=== PATIENT | female | born 1955 | race Caucasian/White ===

== ENCOUNTER 2016-03-29 16:52 | Inpatient (IN) | payer MEDICARE, SELFPAY ==
[2016-03-29] MEDS ORDERED: ASPIRIN 81 MG CHEW PO STA (17:03)
[2016-03-29] MEDS ORDERED: NITROGLYCERIN OINT 1 INCH/GM PACKET TOPICAL STA (17:03)
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
[2016-03-29 17:32] LABS: Basophils % (A) 0 %; CH 31.2; CHCM 35.2; Eosinophils % (A) 1 %; HCT 43.8 % (34.0-46.0); HDW 2.27; Luc % (Auto) 2; Lymphocytes # (A) 1.4 k/uL (1.0-4.8); Lymphocytes % (A) 22 %; MCH 30.5 pg (25.0-35.0); MCHC 34.4 g/dL (31.0-37.0); MCV 88.9 fL (80.0-100.0); Mean Platelet Volume 6.2; Monocytes # (A) 0.4 k/uL (0-1.0); Monocytes % (A) 6 %; Neutrophils # (A) 4.4 k/uL (1.3-7.7); Neutrophils % (A) 70 %; RBC 4.92 m/uL (3.80-5.40); RDW 12.7 % (11.5-15.5); WBC 6.4 k/uL (3.8-10.6)
[2016-03-29 17:43] LABS: ALT 46 U/L (9-52); AST 48 U/L (14-36); Alkaline Phosphatase 57 U/L (38-126); Anion Gap 12 mmol/L; Blood Urea Nitrogen 9 mg/dL (7-17); Calcium 9.8 mg/dL (8.4-10.2); Carbon Dioxide 29 mmol/L (22-30); Chloride 90 mmol/L (98-107); Glucose 102 mg/dL (74-99); Magnesium 1.8 mg/dL (1.6-2.3); Non-African American GFR(MDRD) >60 (>60 ml/min/1.73 sqM); Potassium 3.4 mmol/L (3.5-5.1); Sodium 131 mmol/L (137-145); Total Bilirubin 0.7 mg/dL (0.2-1.3); Total Protein 7.4 g/dL (6.3-8.2)
[2016-03-29 17:52] LABS: Partial Thromboplastin Time 25.8 sec (22.0-30.0); Prothrombin Time 10.4 sec (9.0-12.0)
[2016-03-29 18:05] LABS: Creatine Kinase MB 10.9 ng/mL (0.0-2.4); Troponin I 1.02 ng/mL (0.000-0.034)
[2016-03-29] MEDS ORDERED: HEPARIN SODIUM,PORCINE 5,000 UNIT/ML 1 ML VIAL IV ONE (18:11)
[2016-03-29] MEDS ORDERED: HEPARIN SODIUM,PORCINE/D5W PMX 25,000 UNIT in DEXTROSE/WATER 1 500ML.BAG IV SCH (18:15)
--- NOTE | 2016-03-29 18:18 | XR ---
EXAMINATION TYPE: XR chest 2V DATE OF EXAM: 03/29/2016 6:14 PM HISTORY: Chest pain. REFERENCE: NONE. FINDINGS: Lung volumes are mildly prominent. There are senescent changes throughout the lungs. Heart size is normal. There is no pneumonia or edema. Pleural spaces are clear. IMPRESSION: 1. NO ACUTE INTRATHORACIC ABNORMALITY. 2. QUESTIONABLE COPD.
[2016-03-29] MEDS ORDERED: Acetaminophen-Codeine 300-30mg TAB PO STA (18:34)
[2016-03-29] MEDS ORDERED: NITROGLYCERIN SL TABS 0.4 MG TAB SUBLINGUAL PRN (18:37)
[2016-03-29] MEDS: ONDANSETRON 4 MG/2 ML VIAL IVP PRN (20:17)
[2016-03-29] MEDS ORDERED: LORazepam 2 MG/ML SYRINGE IV STA (20:51)
[2016-03-29] MEDS ORDERED: LORazepam 2 MG/ML SYRINGE IV PRN (21:30)
[2016-03-29 22:13] VITALS: BMI 24.0
[2016-03-29] MEDS ORDERED: CARISOPRODOL 350 MG TAB PO PRN (22:31)
[2016-03-29] MEDS ORDERED: MECLIZINE 25 MG TAB PO PRN (22:31)
[2016-03-29] MEDS: NITROGLYCERIN OINT 1 INCH/GM PACKET TOPICAL SCH (23:15)
[2016-03-29] MEDS ORDERED: Acetaminophen-Codeine 300-30mg TAB PO PRN (23:43)
[2016-03-30] MEDS ORDERED: IPRATROPIUM-ALBUTEROL 3 ML NEB INHALATION SCH
[2016-03-30] MEDS ORDERED: HEPARIN SODIUM,PORCINE 5,000 UNIT/ML 1 ML VIAL IV PRN (01:08)
[2016-03-30 01:48] LABS: Creatine Kinase MB 28.2 ng/mL (0.0-2.4); Troponin I 5.45 ng/mL (0.000-0.034)
[2016-03-30] MEDS: Acetaminophen-Codeine 300-30mg TAB PO PRN ×2 (02:51→20:05)
[2016-03-30] MEDS: ONDANSETRON 4 MG/2 ML VIAL IVP PRN (02:58)
[2016-03-30] MEDS: NITROGLYCERIN OINT 1 INCH/GM PACKET TOPICAL SCH (05:28)
[2016-03-30 07:31] LABS: Cholesterol 175 mg/dL (<200); HDL Cholesterol 83 mg/dL (40-60); Triglycerides 60 mg/dL (<150)
[2016-03-30 07:44] LABS: Creatine Kinase MB 38.9 ng/mL (0.0-2.4); Troponin I 5.57 ng/mL (0.000-0.034)
[2016-03-30] MEDS: IPRATROPIUM-ALBUTEROL 3 ML NEB INHALATION SCH ×4 (07:56→19:55)
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
[2016-03-30] MEDS ORDERED: ATORVASTATIN 80 MG TAB PO STA (08:43)
[2016-03-30] MEDS ORDERED: NITROGLYCERIN SL TABS 0.4 MG TAB SUBLINGUAL PRN ×2 (08:43→11:23)
[2016-03-30] MEDS ORDERED: SODIUM CHLORIDE 0.9% 1,000 ML in EMPTY BAG 1 BAG IV ONE (08:43)
[2016-03-30] MEDS ORDERED: ALPRAZolam 0.5 MG TAB PO PRN (08:43)
[2016-03-30] MEDS ORDERED: ASPIRIN 325 MG TAB PO STA (08:43)
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
[2016-03-30] MEDS ORDERED: CHOLECALCIFEROL 1,000 UNIT TAB PO SCH (09:00)
[2016-03-30] MEDS ORDERED: ASPIRIN 325 MG TAB PO SCH (09:00)
[2016-03-30] MEDS ORDERED: diphenhydrAMINE 50 MG/ML 1 ML VIAL ONE (09:02)
[2016-03-30] MEDS ORDERED: MIDAZOLAM 2 MG/2 ML VIAL ONE (09:02)
[2016-03-30] MEDS ORDERED: methylPREDNISolone SOD SUCCI 125 MG/2 ML VIAL ONE (09:03)
[2016-03-30] MEDS ORDERED: diphenhydrAMINE 50 MG/ML 1 ML VIAL IVP ONE (09:16)
[2016-03-30] MEDS ORDERED: IV FLUID CONTINUATION 900 ML IV ONE (09:16)
[2016-03-30] MEDS ORDERED: methylPREDNISolone SOD SUCCI 125 MG/2 ML VIAL IV ONE (09:16)
[2016-03-30] MEDS: MIDAZOLAM 2 MG/2 ML VIAL IVP ONE ×2 (09:24→09:31)
[2016-03-30] MEDS ORDERED: LIDOCAINE 2% INJ 20 MG/ML SQ ONE (09:26)
--- NOTE | 2016-03-30 10:38 | ECHOF ---
Referral Reason:assess lvf MEASUREMENTS -------- HEIGHT: 160.0 cm WEIGHT: 65.3 kg BP: 123/76 RVIDd: 2.5 cm (< 3.3) IVSd: 1.2 cm (0.6 - 1.1) LVIDd: 4.1 cm (3.9 - 5.3) LVPWd: 1.0 cm (0.6 - 1.1) IVSs: 1.6 cm LVIDs: 3.4 cm LVPWs: 1.6 cm LA Diam: 3.0 cm (2.7 - 3.8) LAESV Index (A-L): 21.42 ml/m Ao Diam: 3.1 cm (2.0 - 3.7) AV Cusp: 2.4 cm (1.5 - 2.6) MV EXCURSION: 14.382 mm (> 18.000) MV EF SLOPE: 68 mm/s (70 - 150) MV E Darrell: 0.66 m/s MV DecT: 222 ms MV A Darrell: 0.76 m/s MV E/A Ratio: 0.87 RAP: 5.00 mmHg RVSP: 31.76 mmHg FINDINGS -------- Sinus rhythm. consider the possibility of apical ballooning syndrome This was a technically good study. The left ventricular size is normal. There is borderline concentric left ventricular hypertrophy. Overall left ventricular systolic function is severely impaired with, an EF between 25 - 30 %. Apical anterior LV wall motion is akinetic. Apical lateral LV wall motion is akinetic. Apical inferior LV wall motion is akinetic. Apical septum LV wall motion is akinetic. The right ventricle is normal in size and function. The left atrium is normal in size. Normal LA size by volume 22+/-6 ml/m2. The right atrium is normal in size. The aortic valve is trileaflet and appears structurally normal. There is trace mitral regurgitation. Mild tricuspid regurgitation present. Right ventricular systolic pressure is normal at < 35 mmHg. The pulmonic valve is normal. There is no pulmonic regurgitation present. The aortic root size is normal. CONCLUSIONS -------- 1. Sinus rhythm. 2. Apical septum LV wall motion is akinetic. 3. The right ventricle is normal in size and function. 4. Normal LA size by volume 22+/-6 ml/m2. 5. The right atrium is normal in size. 6. The aortic valve is trileaflet and appears structurally normal. 7. There is trace mitral regurgitation. 8. Mild tricuspid regurgitation present. 9. Right ventricular systolic pressure is normal at < 35 mmHg. 10. The pulmonic valve is normal. 11. The aortic root size is normal. 12. consider the possibility of apical ballooning syndrome 13. This was a technically good study. 14. The left ventricular size is normal. 15. There is borderline concentric left ventricular hypertrophy. 16. Overall left ventricular systolic function is severely impaired with, an EF between 25 - 30 %. 17. Apical anterior LV wall motion is akinetic. 18. Apical lateral LV wall motion is akinetic. 19. Apical inferior LV wall motion is akinetic. COMPUTER NUMERICAL CONTROL OPERATOR: Tomeka Shah RDCS
[2016-03-30] MEDS ORDERED: BIVALIRUDIN BOLUS 250 MG/50 ML IV ONE (10:47)
[2016-03-30] MEDS ORDERED: BIVALIRUDIN 250 MG in SODIUM CHLORIDE 0.9% 50 ML IV ONE (10:48)
[2016-03-30] MEDS ORDERED: CLOPIDOGREL 75 MG TAB ONE ×2 (10:54)
[2016-03-30] MEDS ORDERED: CLOPIDOGREL 75 MG TAB PO ONE (10:58)
[2016-03-30] MEDS: NITROGLYCERIN 1000MCG/10ML SYRINGE INTRACORON ONE ×2 (11:00→11:05)
[2016-03-30] MEDS: ATORVASTATIN 80 MG TAB PO SCH (11:05)
[2016-03-30] MEDS ORDERED: LIDOCAINE 2% INJ 20 MG/ML (20 ML MDV) ONE (11:12)
[2016-03-30] MEDS ORDERED: FUROSEMIDE 10 MG/ML 4 ML VIAL ONE (11:17)
[2016-03-30] MEDS ORDERED: IOHEXOL 350 MG/ML 100 ML BOTTLE INJ ONE (11:18)
[2016-03-30] MEDS ORDERED: FUROSEMIDE 10 MG/ML 4 ML VIAL IV ONE (11:18)
[2016-03-30] MEDS ORDERED: RX INFO: IV CONTRAST WAS GIVEN 1 EACH MISC MISCELLANE PRN (11:23)
[2016-03-30] MEDS ORDERED: MAG HYDROX/AL HYDROX/SIMETH 30 ML CUP PO PRN (11:23)
[2016-03-30] MEDS ORDERED: ATROPINE SULFATE 0.1 MG/ML 10ML SYRINGE IV PRN (11:23)
[2016-03-30] MEDS ORDERED: ZOLPIDEM 5 MG TAB PO PRN (11:23)
[2016-03-30] MEDS ORDERED: SODIUM CHLORIDE 0.9% 1,000 ML IV SCH (11:30)
--- NOTE | 2016-03-30 13:03 | CC ---
DATE OF SERVICE: INDICATION: Non-ST segment elevation MA. PROCEDURE NOTE: After obtaining informed consent, left heart catheterization and coronary angiogram are performed via the right femoral artery using standard Ninfa catheters. Patient tolerated the procedure well without any obvious immediate complications. FINDINGS: 1. HEMODYNAMICS: Left ventricular end-diastolic pressure was 24 mm. There is no significant gradient across the aortic valve. 2. LEFT VENTRICULOGRAM: Left ventriculogram is performed in LOVE position and shows akinetic apex that is moderate to severe LV dysfunction with an ejection fraction of 35%, mid to distal anterior wall and the apex are hypokinetic. Inferobasal wall is erika normal. LV systolic function is around 35%. 3. ANGIOGRAPHIC DATA: LEFT MAIN CORONARY ARTERY: Left main coronary artery is a normal size vessel and is free of stenosis. It divides into left anterior descending coronary artery and circumflex coronary artery. Circumflex coronary artery is a small, nondominant vessel and is free of significant stenosis. LAD gives off 2 large caliber diagonal branches and the LAD itself shows a 99% stenosis in its midportion. Right coronary artery seems to be a dominant vessel. It gives the appearance of a complete occlusion in the mid to distal portion with some right to left collaterals. CONCLUSION: 1. A 99% stenosis involving mid left anterior descending artery. 2. Ischemic cardiomyopathy with severe left ventricular dysfunction. 3. Possible chronic occlusion of the right coronary artery after the origin of the PDA.
[2016-03-30] MEDS: CARVEDILOL 3.125 MG TAB PO SCH (17:34)
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
--- NOTE | 2016-03-30 20:22 | PTCA ---
DATE OF SERVICE: PROCEDURE: PTCA and stenting of mid LAD. PERFORMED BY: Dr. Mason Lopez. CLINICAL INFORMATION: Mrs. Mae Faye is a 60-year-old lady with a history of hypertensive cardiovascular disease and vertigo type symptoms who came into the hospital with chest pain and had EKG changes suggestive of subendocardial FL and had troponin elevation. Patient's presentation with a non-ST elevation myocardial infarction. EKG changes and ongoing chest pain and ( ) cardiac catheterization that was performed by Dr. Aden. Study revealed that the LAD had a 99% stenosis with sluggish flow, which was the culprit lesion. The right coronary seemed to be dominant, but totally occluded in the midportion without much distal flow. There were no collaterals and circumflex was very small. LAD seemed to be a large vessel supplying a large territory with multiple branches. PROCEDURE NOTE: The existing 6 Pashto introducer in the right femoral artery was used to perform the procedure. I performed an LV gram using a pigtail catheter and this revealed a global hypokinesia. Especially the inferior wall was hypokinetic towards the apex and in the midportion and there was akinesia. Anteroapical wall, hypokinetic. Estimated ejection fraction was about 20% without mitral regurgitation. Using a standard left Ninfa-type guide catheter, I cannulated the left coronary artery. A whisper wire was used to cross the lesion. Predilatation was performed using a 12 mm long, 2.5 the caliber balloon, which was a Trek balloon. I then deployed a 15 mm long, 2.75 caliber Xience stent deployed at 14 atmospheres. Patient had chest pain and precordial ST elevation that was more prominent. Excellent angiographic result without complication was achieved. The sheath was taken out and Angio-Seal device used to secure hemostasis and he was sent to the room in stable condition. Results were discussed with the patient, but there were no family available. Excellent angiographic result without complication was achieved.
--- NOTE | 2016-03-30 20:24 | LTR ---
March 30, 2016 RE: Mae Faye Kate Dear Dr. Pulliam: Thank you for the opportunity to participate in the care of Mrs. Mae Faye. I am pleased to report to you that we have excellent angiographic result. Her mid LAD was stented using a drug-eluting stent. She presented with a non-ST elevation NC. There is extensive wall motion abnormality and I suspect the RCA is also totally occluded but this may be a chronic occlusion without collaterals. After about 6 weeks or so she should be evaluated by an echocardiogram and possibly a stress test as well to see if to the RCA distribution defines itself as a prior NC. Thank you for your referral. Please call for questions. With kindest regards, Sincerely, HENNA DOWELL MD
[2016-03-30] MEDS: LISINOPRIL 5 MG TAB PO SCH (22:01)
[2016-03-31 06:19] LABS: Basophils % (A) 0 %; CH 31.4; CHCM 35.3; Eosinophils % (A) 0 %; HCT 39.4 % (34.0-46.0); HDW 2.32; HGB 13.2 gm/dL (11.4-16.0); Luc # (Auto) 0.11; Luc % (Auto) 1; Lymphocytes # (A) 1.5 k/uL (1.0-4.8); Lymphocytes % (A) 16 %; MCHC 33.6 g/dL (31.0-37.0); MCV 89.4 fL (80.0-100.0); Monocytes # (A) 0.7 k/uL (0-1.0); Monocytes % (A) 7 %; Neutrophils # (A) 6.8 k/uL (1.3-7.7); Neutrophils % (A) 75 %; RBC 4.41 m/uL (3.80-5.40); RDW 12.8 % (11.5-15.5); WBC 9.1 k/uL (3.8-10.6); WBC (Perox) 9.78
[2016-03-31 06:30] LABS: Anion Gap 8 mmol/L; Blood Urea Nitrogen 9 mg/dL (7-17); Calcium 9.1 mg/dL (8.4-10.2); Carbon Dioxide 28 mmol/L (22-30); Chloride 92 mmol/L (98-107); Glucose 98 mg/dL (74-99); Non-African American GFR(MDRD) >60 (>60 ml/min/1.73 sqM); Potassium 3.4 mmol/L (3.5-5.1); Sodium 128 mmol/L (137-145)
[2016-03-31] MEDS: CARVEDILOL 3.125 MG TAB PO SCH (07:01)
[2016-03-31] MEDS: IPRATROPIUM-ALBUTEROL 3 ML NEB INHALATION SCH ×4 (07:10→20:17)
[2016-03-31] MEDS: SPIRONOLACTONE 25 MG TAB PO SCH ×2 (08:29→12:06)
[2016-03-31] MEDS: ATORVASTATIN 80 MG TAB PO SCH (08:30)
[2016-03-31] MEDS: FUROSEMIDE 20 MG TAB PO SCH ×2 (08:31→12:06)
[2016-03-31] MEDS: ASPIRIN 81 MG CHEW PO SCH (08:31)
[2016-03-31] MEDS: CLOPIDOGREL 75 MG TAB PO SCH (08:31)
--- NOTE | 2016-03-31 12:29 | P.PN ---
Subjective Principal diagnosis: Non-ST elevated MD Selective a pleasant 60-year-old female with no prior documented history of hypertension or diabetes. She does have a history of mild hyperlipidemia and a family history of coronary artery disease in her father. She is a nonsmoker. She presented to the hospital symptoms of chest pain. Her troponin was located at 5.45. 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 Echocardiogram showed an ejection fraction of 25-30 %. She has been on Lasix 20 mg daily, lisinopril 5 mg at at bedtime, carvedilol 3.125 mg by mouth twice a day. She was hypotensive this morning with a blood pressure in the 80s and was symptomatic with this. Otherwise she' s been feeling well she's been up ambulating and has no complaints of shortness of breath or chest discomfort. Objective - Vital Signs Vital signs: Vital Signs Temp 98.1 F 03/31/16 08:00 Pulse 87 03/31/16 10:12 Resp 18 03/31/16 10:12 BP 129/71 03/31/16 10:12 Pulse Ox 100 03/31/16 08:00 Intake & Output 03/30/16 03/31/16 03/31/16 18:59 06:59 18:59 Intake Total 740 1600 200 Output Total 1760 Balance -1020 1600 200 Weight 64.8 kg Intake: IV 280 1000 Sodium Chloride 0.9% 1, 1000 000 ml In Empty Bag 1 bag @ 1 ML/KG/HR 65.6 mls/hr IV .[id number] [facility] Rx#: [id number] Intake, IV Titration 600 Amount Sodium Chloride 0.9% 1, 600 000 ml @ 75 mls/hr IV . [id number] [facility] Rx#:[id number] Oral 460 200 Output: Urine 1760 Other: Voiding Method Toilet # Voids 2 - Exam PHYSICAL EXAMINATION: HEENT: Head is atraumatic, normocephalic. Pupils equal, round. Neck is supple. There is no elevated jugular venous pressure. HEART EXAMINATION: Heart sounds regular, S1 and S2 normal. No murmur or gallop heard. CHEST EXAMINATION: Lungs are clear to auscultation and precussion. No chest wall tenderness is noted on palpation or with deep breathing. ABDOMEN: Soft, nontender. Bowel sounds are heard. No organomegaly noted. EXTREMITIES: 2+ peripheral pulses with no evidence of peripheral edema and no calf tenderness noted. Right groin puncture site with mild ecchymosis, no hematoma, no bruit. NEUROLOGIC patient is awake, alert and oriented x3. . - Labs CBC & Chem 7: 03/31/16 05:45 03/31/16 05:45 Labs: Abnormal Lab Results - Last 24 Hours (Table) 03/31/16 Range/Units 05:45 Sodium 128 L (137-145) mmol/L Potassium 3.4 L (3.5-5.1) mmol/L Chloride 92 L (98-107) mmol/L Assessment and Plan Plan: Assessment and plan #1 non-ST elevated myocardial infarction #2 family history of premature coronary artery disease #3 mild hyperlipidemia #4 PTSD From cardiology's perspective, we will stop Lasix. We will stop carvedilol and start the patient on metoprolol succinate 25 mg by mouth daily starting tomorrow. We will resume patient's home dose of Maxzide for her Mnire's. We' ll continue to follow the patient and provide further recommendations accordingly. We anticipate the patient will be discharged either Sunday or Sunday. BUFFING WHEEL FORMER MACHINE note has been reviewed, I agree with a documented findings and plan of care. Patient was seen and examined.
[2016-03-31] MEDS: TRIAMTERENE-HCTZ 75-50MG 1 EACH TAB PO SCH (13:29)
[2016-03-31] MEDS: MECLIZINE 25 MG TAB PO PRN (14:53)
--- NOTE | 2016-03-31 16:54 | P.PN ---
Subjective 60 yr old is admitted to the hospital with complaints of chest pain for the last few days. Pt was in good health till a week ago, when she noticed her exercise capacity has significantly decreased. Pt usually exercises at least 20mins, however was only able to tolerate a few minutes in the recent times. She states that her pain is midsternal, non radiating, intermittent in nature. At the time of my examination, pt was pain free. Pt was noted to have a EKG that didnot reveal any st-t wave changes, however there is a troponin elevation. Echocardiogram done initially showed lv dysfunction. Pt was taken to the labor economist, was noted to have diffuse coronary disease, and had a LAD stent placed by Interventional cardiology. No fevers, chills, chest pain, NINA, abdominal pain, urinary urgency or frequency. 03/31/2016 Patient states to be doing well denies having any chest pain, difficulty breathing, nausea, vomiting, diarrhea. Objective - Vital Signs Vital signs: Vital Signs Temp 98.1 F 03/31/16 08:00 Pulse 96 03/31/16 16:00 Resp 18 03/31/16 16:00 BP 97/64 03/31/16 16:00 Pulse Ox 100 03/31/16 16:00 Intake & Output 03/30/16 03/31/16 03/31/16 18:59 06:59 18:59 Intake Total 740 1600 318 Output Total 1760 Balance -1020 1600 318 Weight 64.8 kg 66 kg Intake: IV 280 1000 Sodium Chloride 0.9% 1, 1000 000 ml In Empty Bag 1 bag @ 1 ML/KG/HR 65.6 mls/hr IV .[id number] ONE Rx#: [id number] Intake, IV Titration 600 Amount Sodium Chloride 0.9% 1, 600 000 ml @ 75 mls/hr IV . [id number] [facility] Rx#:[id number] Oral 460 318 Output: Urine 1760 Other: Voiding Method Toilet # Voids 2 2 - Exam Physical exam Gen. appearance oriented 3 in no distress Neck is supple no JVD Lungs good air entry clear to auscultation no rhonchi or wheezing Heart S1-S2 heard regular rate and rhythm no murmurs appreciated Abdomen is soft nontender no organomegaly bowel sounds are intact Neurologically cranial nerves II-12 grossly intact no focal motor or sensory deficits noted Skin no abnormalities appreciated - Labs CBC & Chem 7: 03/31/16 05:45 03/31/16 05:45 Labs: Abnormal Lab Results - Last 24 Hours (Table) 03/31/16 Range/Units 05:45 Sodium 128 L (137-145) mmol/L Potassium 3.4 L (3.5-5.1) mmol/L Chloride 92 L (98-107) mmol/L Assessment and Plan Plan: 1. Non q wave UT 2. Peripheral vertig0 3. Chronic back pain. 4. Compensated systolic heart failure sec to ischemic disease. #5 hyponatremia likely secondary to diuretics and increased free water intake. Plan Dual antiplatelet therapy.Statin. ACEI, spirinolactone. Vascular checks Will be started on a fluid resection 1.5 L. This was discussed with the patient on the RN. Continue ongoing care patient would like to be monitored for apparently another 2 days by cardiology.
[2016-03-31] MEDS: LISINOPRIL 5 MG TAB PO SCH (23:12)
[2016-03-31] MEDS: ALPRAZolam 0.25 MG TAB PO PRN (23:24)
[2016-04-01] MEDS: TRIAMTERENE-HCTZ 75-50MG 1 EACH TAB PO SCH (08:21)
[2016-04-01] MEDS: ASPIRIN 81 MG CHEW PO SCH (08:21)
[2016-04-01] MEDS: ATORVASTATIN 80 MG TAB PO SCH (08:23)
[2016-04-01] MEDS: CLOPIDOGREL 75 MG TAB PO SCH (08:24)
[2016-04-01] MEDS: SPIRONOLACTONE 25 MG TAB PO SCH (08:25)
[2016-04-01] MEDS: IPRATROPIUM-ALBUTEROL 3 ML NEB INHALATION SCH ×4 (08:38→20:26)
[2016-04-01] MEDS ORDERED: METOPROLOL SUCCINATE (ER) 25 MG TAB.ER.24H PO SCH (09:00)
[2016-04-01] MEDS: MECLIZINE 25 MG TAB PO PRN (10:11)
[2016-04-01 10:37] VITALS: RESP 18
--- NOTE | 2016-04-01 16:49 | PN ---
Mae Faye is doing well. She is ambulating in the hallways. She ( ) because her blood pressure was low but she was asymptomatic. She was admitted with anterior wall infarct and underwent stenting to the LAD . She is doing well from a cardiac standpoint, she has no dizziness, lightheadedness. No undue shortness of breath. No chest discomfort. Vitals are stable. She is afebrile. Pulse rate is in the 70s and 80s, respirations are normal, blood pressure 160/69 to 103/63 mm of mercury. IMPRESSION: 1. Anterior wall myocardial infarction. 2. Severe left ventricular dysfunction, ischemic cardiomyopathy SUGGEST: Continue aspirin and atorvastatin and Plavix, Lisinopril dose was reduced to 2.5 mg p.o. daily in the evening. Continue metoprolol succinate 25 mg a day and spironolactone 12.5 mg p.o. daily. I will try increasing the dose of metoprolol succinate to 50 mg in the morning for tomorrow.
--- NOTE | 2016-04-01 19:47 | PN ---
INTERVAL HISTORY: Ms. Faye is a 60-year-old female with no significant past medical history who admitted to the hospital with a chief complaint of chest pain and she was found to have elevated troponins and also taken to the labor representative and had subsequent stenting of the LAD. Echo showed EF of 25 to 30% and she has been started on beta blockers, GISELA and Lasix. She showed significant improvement in her symptoms. Today the patient is lying in bed, appears to be in no acute distress. She does not have any active complaints. REVIEW OF SYSTEMS: CARDIAC: No chest pain or palpitations. RESPIRATORY: No cough. No difficulty in breathing. GI: No abdominal pain, nausea, vomiting, or diarrhea. : No dysuria or hematuria. Patient's medications have been reviewed. On examination, patient's vital signs, temperature is 97.6, heart rate 88, respiratory rate 18, blood pressure 95/52, saturating at 99% on room air. GENERAL EXAMINATION: HEAD: Atraumatic, normocephalic. EYES: Pupils, round, and reactive to light. NECK: No thyromegaly, no JVD. CARDIAC: S1, S2 heard. RESPIRATORY: Bilateral breath sounds are positive. No wheeze or crackles. ABDOMEN: Soft, nontender. Bowel sounds are positive. EXTREMITIES: No edema. No cyanosis. No clubbing. COUPLES THERAPIST: Alert, awake, oriented x3. No focal neurological deficits. Patient's labs: White count 9.1, hemoglobin is 13.2, platelets of 291. Sodium 128, potassium 3.4, chloride 92, bicarb 28, BUN 9, creatinine 0.60. ASSESSMENT: 1. Non-ST elevation myocardial infarction. 2. Mixed hyperlipidemia. 3. Peripheral vertigo. 4. Ischemic Cardiomyopathy with ejection fraction of 25 to 30%. 5. Hyponatremia most likely secondary to diuretics. 6. Family history of premature coronary artery disease. 7. Posttraumatic stress disorder. PLAN: Continue the patient on dual antiplatelet therapy, statin, gisela inhibitors and spironolactone. We will continue with the rest of his medication regimen and further recommendations to follow depending on the progress of the patient. [facility]
[2016-04-01] MEDS: ALPRAZolam 0.25 MG TAB PO PRN (21:40)
[2016-04-01] MEDS: LISINOPRIL 2.5 MG TAB PO SCH (21:41)
[2016-04-02 07:14] LABS: Basophils # (A) 0.1 k/uL (0-0.2); Basophils % (A) 1 %; CH 31.3; CHCM 34.9; Eosinophils # (A) 0.1 k/uL (0-0.7); Eosinophils % (A) 2 %; HCT 38.3 % (34.0-46.0); HDW 2.28; HGB 13.1 gm/dL (11.4-16.0); Luc # (Auto) 0.11; Luc % (Auto) 2; Lymphocytes # (A) 2.2 k/uL (1.0-4.8); Lymphocytes % (A) 30 %; MCH 30.8 pg (25.0-35.0); MCHC 34.3 g/dL (31.0-37.0); MCV 89.8 fL (80.0-100.0); Mean Platelet Volume 7.1; Monocytes # (A) 0.8 k/uL (0-1.0); Monocytes % (A) 10 %; Neutrophils # (A) 4.2 k/uL (1.3-7.7); Neutrophils % (A) 56 %; RBC 4.27 m/uL (3.80-5.40); WBC 7.4 k/uL (3.8-10.6)
[2016-04-02 07:27] LABS: Anion Gap 6 mmol/L; Blood Urea Nitrogen 11 mg/dL (7-17); Calcium 9.1 mg/dL (8.4-10.2); Carbon Dioxide 30 mmol/L (22-30); Chloride 97 mmol/L (98-107); Glucose 79 mg/dL (74-99); Non-African American GFR(MDRD) >60 (>60 ml/min/1.73 sqM); Potassium 3.9 mmol/L (3.5-5.1); Sodium 133 mmol/L (137-145)
[2016-04-02] MEDS: MECLIZINE 25 MG TAB PO PRN (07:59)
[2016-04-02] MEDS: TRIAMTERENE-HCTZ 75-50MG 1 EACH TAB PO SCH (07:59)
[2016-04-02] MEDS: SPIRONOLACTONE 25 MG TAB PO SCH (08:00)
[2016-04-02] MEDS: ATORVASTATIN 80 MG TAB PO SCH (08:00)
[2016-04-02] MEDS: CLOPIDOGREL 75 MG TAB PO SCH (08:00)
[2016-04-02] MEDS: METOPROLOL SUCCINATE (ER) 50 MG TAB.ER.24H PO SCH (08:00)
[2016-04-02] MEDS: ASPIRIN 81 MG CHEW PO SCH (08:00)
[2016-04-02] MEDS: IPRATROPIUM-ALBUTEROL 3 ML NEB INHALATION SCH ×4 (09:09→19:55)
--- NOTE | 2016-04-02 14:04 | PN ---
Mae Faye is a 60-year-old female who had an anterior wall myocardial infarction. She underwent successful stenting of this. She has severe left ventricular dysfunction. Apical ballooning was noted on 2-D echocardiogram. Ejection fraction revealed 25 to 30%. The anterior wall is akinetic. On examination, her vitals are stable. She is afebrile. Her blood pressure is 117/62 mmHg. Normal respirations. Normal pulse rate. Head and neck examination is normal. No JVD, thyromegaly, carotid bruits. Heart sounds are normal. No murmurs or gallops. Breath sounds are normal. No rhonchi. No crackles. ABDOMEN: Soft. EXTREMITIES: Warm. No edema. IMPRESSION: 1. Anterior wall myocardial infarction, status post coronary intervention. 2. Severe ischemic cardiomyopathy with akinesis of the anterior wall and apex with severe left ventricular dysfunction. No evidence for cardiogenic shock. No evidence for any significant heart failure. No S3 gallop. SUGGEST: Continue aspirin and Plavix along with atorvastatin, continue Lisinopril 2.5 mg p.o. daily, continue metoprolol succinate 50 mg daily. Continue spironolactone 12.5 mg daily. I would definitely ( ) holding triamterene hydrochlorothiazide and just increasing the dose of spironolactone as an outpatient. I will see her again in the next 1 to 2 weeks post discharge and follow her LV function and in the next 3 months she needs a reassessment for risk of sudden cardiac . I will also recommend cardiac rehab as an outpatient after 2 to 3 weeks.
[2016-04-02] MEDS: LISINOPRIL 2.5 MG TAB PO SCH (22:16)
[2016-04-02] MEDS: ALPRAZolam 0.25 MG TAB PO PRN (22:20)
[2016-04-03] MEDS: ASPIRIN 81 MG CHEW PO SCH (08:05)
[2016-04-03] MEDS: METOPROLOL SUCCINATE (ER) 50 MG TAB.ER.24H PO SCH (08:05)
[2016-04-03] MEDS: CLOPIDOGREL 75 MG TAB PO SCH (08:05)
[2016-04-03] MEDS: ATORVASTATIN 80 MG TAB PO SCH (08:05)
[2016-04-03] MEDS: SPIRONOLACTONE 25 MG TAB PO SCH (08:06)
[2016-04-03] MEDS: IPRATROPIUM-ALBUTEROL 3 ML NEB INHALATION SCH ×3 (08:16→15:41)
[2016-04-03] MEDS: TRIAMTERENE-HCTZ 75-50MG 1 EACH TAB PO SCH (11:26)
--- NOTE | 2016-04-03 12:34 | PN ---
Ms. Faye is a 60-year-old female with no significant past medical history admitted to the hospital with a chief complaint of chest pain. The patient was found to have elevated troponins and taken to the manager cardiac cath and subsequently had stenting of the LAD. Echo showed EF of 25 to 30%. She has been started beta blockers, segundo inhibitors and Lasix. The patient showed significant improvement in her symptoms. Today the patient is lying in bed, appears to be no acute distress. She does not have any active complaints. REVIEW OF SYSTEMS: CONSTITUTIONAL: Denies having any fevers, chills or rigors. RESPIRATORY: No cough. No difficulty in breathing. GI: No abdominal pain. No nausea or vomiting. No diarrhea. GENITOURINARY: No dysuria or hematuria. Patient's medications have been reviewed. On examination, patient's vital signs: Temperature is 97.6, heart rate of 93, respiratory rate 17, blood pressure 132/59, saturating at 97% on room air. GENERAL: Patient appears to be no acute distress. HEAD: Atraumatic, normocephalic. EYES: Pupils, round, and reactive to light. NECK: No jugular venous distention. No thyromegaly. CARDIOVASCULAR: S1, S2 heard. RESPIRATORY: Bilateral breath sounds are heard. Decreased in all lung piña. ABDOMEN: Soft. Bowel sounds positive. EXTREMITIES: No edema. No cyanosis seen. PHYSICAL THERAPIST ASSISTANT: Alert, awake, oriented x3. No focal neurological deficits. Patient's labs: White count of 7.4, hemoglobin 13.1, platelets of 289, sodium 133, potassium 3.9, chloride 97, bicarb 30, BUN 11, creatinine 0.69 ASSESSMENT AND PLAN: 1. Non-ST elevation myocardial infarction. 2. Peripheral vertigo. 3. Severe ischemic cardiomyopathy with ejection fraction of 25 to 30%. 4. Hyponatremia, resolved. 5. Family history of premature coronary artery disease. 6. Posttraumatic stress disorder. PLAN: The plan is to continue on dual antiplatelet therapy, statin and segundo inhibitors and spironolactone. Continue the rest of her medication regimen and anticipate discharge in the next 24 hours.
--- NOTE | 2016-04-03 15:39 | P.PN ---
Subjective Principal diagnosis: Chest pain This is a pleasant 60-year-old female admitted to the hospital with symptoms of chest discomfort. She was taken to the cardiac catheterization lab where she underwent angioplasty with stenting of the left anterior descending artery. Echocardiogram with Doppler study revealed an LV function of 25-30%. Patient has been walking in the [place] most of the morning, denies any chest pain , breathing is stable. Objective - Vital Signs Vital signs: Vital Signs Temp 97.2 F L 04/03/16 04:00 Pulse 80 04/03/16 11:50 Resp 18 04/03/16 11:50 BP 111/56 04/03/16 11:50 Pulse Ox 100 04/03/16 11:50 Intake & Output 04/02/16 04/03/16 04/03/16 18:59 06:59 18:59 Intake Total 440 600 305 Balance 440 600 305 Weight 63.2 kg Intake: Oral 440 600 305 Other: Voiding Method Toilet # Voids 1 1 - Exam PHYSICAL EXAMINATION: HEENT: Head is atraumatic, normocephalic. Pupils equal, round. Neck is supple. There is no elevated jugular venous pressure. HEART EXAMINATION: Heart S1, S2 normal. No murmur or gallop heard. CHEST EXAMINATION: Lungs are clear to auscultation and precussion. No chest wall tenderness is noted on palpation or with deep breathing. ABDOMEN: Soft, nontender. Bowel sounds are heard. No organomegaly noted. EXTREMITIES: 2+ peripheral pulses with no evidence of peripheral edema and no calf tenderness noted. NEUROLOGIC patient is awake, alert and oriented -3. . - Labs CBC & Chem 7: 04/02/16 06:35 04/02/16 06:35 Assessment and Plan Plan: Assessment and plan #1 non-Q-wave myocardial infarction, LAD stenting #2 family history of premature coronary artery disease in her father who had bypass surgery 2. #3 PTSD #4 mild hyperlipidemia # 5 ischemic cardiomyopathy Plan From cardiology's perspective, patient may be able to be discharged home today. We'll make her a follow-up appointment with Dr. Cisneros in the office post discharge. She will be discharged home on aspirin 81 mg daily, Lipitor 80 mg daily, Plavix 75 mg daily, lisinopril 2.5 mg daily, metoprolol tartrate 50 mg daily, Aldactone 25 mg daily, and sublingual nitroglycerin as needed for chest pain. The patient has been educated regarding her medication and provided prescriptions for the above medications as well. DNP note has been reviewed, I agree with a documented findings and plan of care. Patient was seen and examined.
[2016-04-03 15:41] VITALS: BP 118/56; PULSE 84; TEMP 97.1
--- NOTE | 2016-04-04 09:31 | DS ---
DATE OF ADMISSION: 03/29/2016 DATE OF DISCHARGE: 04/03/2016 HOSPITAL COURSE: Ms. Faye is a 60-year-old female with no significant past medical history admitted to the hospital with a chief complaint of chest pain. The patient was found to have elevated troponins and subsequently taken to the laborer airport maintenance. Patient had stenting of the LAD. Echo was showing an ejection fraction of 25% to 30%. Patient has been started on beta [place], GISELA inhibitor and Lasix. Patient showed significant improvement in her symptoms. Patient has been walking in the hallways every one hour and denies having any chest pain or dizziness. She has been cleared by Cardiology to be discharged home today. Patient's vitals at the time of discharge: Temperature 97.1, heart rate 84, respiratory rate 18, blood pressure 189/56, saturating at 100% on room air. GENERAL EXAMINATION: No acute distress. HEAD: Atraumatic, normocephalic. CARDIAC: S1, S2 heard. RESPIRATORY: Bilateral breath sounds are positive. ABDOMEN: Soft. EXTREMITIES: No edema. No swelling. No cyanosis. PATIENT'S LABS: White count of 7.4, hemoglobin 13.1, platelets of 289. Sodium 133, potassium 3.9, chloride 97, bicarb 30, BUN 11, creatinine 0.69. DISCHARGE DIAGNOSES: 1. Non-Q wave myocardial infarction, status post LAD stenting. 2. Peripheral vertigo. 3. Severe ischemic cardiomyopathy with ejection fraction of 25% to 30%. 4. Hyponatremia, resolved. 5. Family history of premature coronary artery disease. 6. Posttraumatic stress disorder. PATIENT'S DISCHARGE MEDICATIONS: 1. Tylenol No. 3 one tablet q.8 hours p.r.n. for pain. 2. Soma 350 mg p.o. b.i.d. 3. Vitamin D3, 3000 units p.o. daily. 4. Advair 250/50 Diskus 2 puffs b.i.d. 5. Meclizine 25 mg p.o. 3 times a day. 6. Floral 3 fatty acids 1000 mg p.o. daily. 7. Maxzide 75/50 one tablet p.o. daily. 8. Aspirin 81 mg p.o. daily. 9. Lipitor 80 mg p.o. daily. 10. Plavix 75 mg p.o. daily. 11. Lisinopril 2.5 mg p.o. q.h.s. 12. Metoprolol 50 mg p.o. daily. 13. Nitroglycerin 0.4 mg sublingual q.5 minutes p.r.n. for chest pain. 14. Aldactone 12.5 mg p.o. daily. FOLLOWUP: The patient is advised to follow up with her primary care physician, Dr. Pulliam, in 1 to 2 days and Cardiology, Dr. Hooker, within one weeks' of time. Activity as tolerated. DIET: Cardiac diet.
== END 2016-04-03 16:59 | disposition home or self-care (01) | DRG 247 ==
LOC: EC 16:52 → 6SEL 18:37
PROVIDERS: ADMIT Internal Medicine; ATTEND Internal Medicine
PROC: B2111ZZ Fluoroscopy of Multiple Coronary Arteries using Low Osmolar Contrast (ICD-10-PCS; 2016-03-30)
PROC: B2151ZZ Fluoroscopy of Left Heart using Low Osmolar Contrast (ICD-10-PCS; 2016-03-30)
PROC: 027034Z Dilation of Coronary Artery, One Artery with Drug-eluting Intraluminal Device, Percutaneous Approach (ICD-10-PCS; principal; 2016-03-30 09:30)
PROC: 4A023N7 Measurement of Cardiac Sampling and Pressure, Left Heart, Percutaneous Approach (ICD-10-PCS; 2016-03-30 09:30)
DX: I21.4 Non-ST elevation (NSTEMI) myocardial infarction (principal); I50.22 Chronic systolic (congestive) heart failure; E87.1 Hypo-osmolality and hyponatremia; E78.2 Mixed hyperlipidemia; F43.10 Post-traumatic stress disorder, unspecified; G89.29 Other chronic pain; H81.399 Other peripheral vertigo, unspecified ear; I25.5 Ischemic cardiomyopathy; J45.909 Unspecified asthma, uncomplicated; M85.80 Other specified disorders of bone density and structure, unspecified site; T50.2X5A Adverse effect of carbonic-anhydrase inhibitors, benzothiadiazides and other diuretics, initial encounter; E07.9 Disorder of thyroid, unspecified; M54.9 Dorsalgia, unspecified; E55.9 Vitamin D deficiency, unspecified; F41.9 Anxiety disorder, unspecified; Z79.899 Other long term (current) drug therapy; Z91.041 Radiographic dye allergy status; Z88.2 Allergy status to sulfonamides; Z91.012 Allergy to eggs; Z91.040 Latex allergy status; Z91.013 Allergy to seafood; Z82.49 Family history of ischemic heart disease and other diseases of the circulatory system
CPT/HCPCS: 36415; 71020; 80048; 80053; 80061; 82550; 82553; 83735; 84132; 84484; 85025; 85610; 85730; 93005; 93306; 93458; 94640; 94760; 96365; 96366; 96375; 96376; 99291

== ENCOUNTER 2016-05-31 17:05 | Inpatient (IN) | payer MEDICARE ==
[2016-05-31] MEDS ORDERED: LORazepam 2 MG/ML SYRINGE IV STA (18:15)
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
[2016-05-31 18:39] LABS: Basophils % (A) 0 %; CH 31.4; CHCM 36.2; Eosinophils # (A) 0.1 k/uL (0-0.7); Eosinophils % (A) 1 %; HCT 41.3 % (34.0-46.0); HDW 2.46; HGB 14.5 gm/dL (11.4-16.0); Luc # (Auto) 0.14; Luc % (Auto) 2; Lymphocytes % (A) 11 %; MCH 30.6 pg (25.0-35.0); MCHC 35.2 g/dL (31.0-37.0); Monocytes # (A) 0.6 k/uL (0-1.0); Monocytes % (A) 6 %; Neutrophils # (A) 7.8 k/uL (1.3-7.7); Neutrophils % (A) 81 %; RBC 4.74 m/uL (3.80-5.40); RDW 12.1 % (11.5-15.5); WBC 9.6 k/uL (3.8-10.6); WBC (Perox) 9.15
[2016-05-31] MEDS ORDERED: SODIUM CHLORIDE 0.9% 1,000 ML IV ONE (18:39)
[2016-05-31 18:45] LABS: Amorphous Sediment,Urine Rare /hpf; Appearance,Urine Clear (Clear); Bilirubin,Urine Negative (Negative); Glucose,Urine (UA) Negative (Negative); Ketones,Urine Negative (Negative); Leukocyte Esterase,Urine Small (Negative); Mucus,Urine Rare /hpf; Nitrite,Urine Negative (Negative); Particle Count 1974; Protein,Urine Negative (Negative); RBC,Urine 1 /hpf (0-5); Specific Gravity,Urine 1.008 (1.001-1.035); Squamous Epithelial Cell,Urine 3 /hpf (0-4); UA Billing (MACRO vs. MICRO) MICRO; Urobilinogen,Urine <2.0 mg/dL (<2.0); WBC,Urine 6 /hpf (0-5)
[2016-05-31 18:51] LABS: ALT 58 U/L (9-52); AST 48 U/L (14-36); Alkaline Phosphatase 71 U/L (38-126); Anion Gap 11 mmol/L; Blood Urea Nitrogen 12 mg/dL (7-17); Carbon Dioxide 27 mmol/L (22-30); Chloride 86 mmol/L (98-107); Glucose 95 mg/dL (74-99); Magnesium 1.8 mg/dL (1.6-2.3); Non-African American GFR(MDRD) >60 (>60 ml/min/1.73 sqM); Potassium 4.2 mmol/L (3.5-5.1); Sodium 124 mmol/L (137-145); Total Bilirubin 0.8 mg/dL (0.2-1.3); Total Protein 7.1 g/dL (6.3-8.2)
[2016-05-31 18:53] LABS: Partial Thromboplastin Time 25.3 sec (22.0-30.0); Prothrombin Time 10.3 sec (9.0-12.0)
--- NOTE | 2016-05-31 19:03 | XR ---
EXAMINATION TYPE: XR chest 2V DATE OF EXAM: 05/31/2016 6:59 PM COMPARISON: Prior chest x-ray March 29, 2016. HISTORY: Chest pain per order. Tachyarrhythmia per patient. TECHNIQUE: Frontal and lateral views of the chest are obtained. FINDINGS: There is no focal air space opacity, pleural effusion, or pneumothorax seen. Underlying e mphysematous change is not excluded. The cardiac silhouette size is within normal limits. Underlying scoliotic curvature is redemonstrated. IMPRESSION: No acute cardiopulmonary process. No significant change from prior.
[2016-05-31 19:04] LABS: Creatine Kinase 243 U/L (30-135)
[2016-05-31 19:18] LABS: Troponin I <0.012 ng/mL (0.000-0.034)
[2016-05-31 19:24] LABS: Creatine Kinase MB 3.5 ng/mL (0.0-2.4)
[2016-05-31] MEDS ORDERED: NITROGLYCERIN SL TABS 0.4 MG TAB SUBLINGUAL PRN (19:43)
[2016-05-31] MEDS: SODIUM CHLORIDE 0.9% 1,000 ML IV SCH (20:02)
[2016-05-31] MEDS ORDERED: CARISOPRODOL 350 MG TAB PO PRN (22:00)
[2016-06-01] MEDS: ATORVASTATIN 80 MG TAB PO SCH ×2 (00:05→21:02)
[2016-06-01] MEDS: METOPROLOL SUCCINATE (ER) 50 MG TAB.ER.24H PO SCH ×2 (00:05→21:03)
[2016-06-01 00:40] LABS: Creatine Kinase 186 U/L (30-135)
[2016-06-01 00:54] LABS: Troponin I <0.012 ng/mL (0.000-0.034)
[2016-06-01 00:58] LABS: Creatine Kinase MB 2.7 ng/mL (0.0-2.4)
[2016-06-01 07:04] LABS: Cholesterol 96 mg/dL (<200); HDL Cholesterol 60 mg/dL (40-60); Triglycerides 26 mg/dL (<150)
[2016-06-01 07:13] LABS: Creatine Kinase 169 U/L (30-135)
[2016-06-01 07:25] LABS: Troponin I <0.012 ng/mL (0.000-0.034)
[2016-06-01 07:32] LABS: Creatine Kinase MB 2.5 ng/mL (0.0-2.4)
[2016-06-01] MEDS: SODIUM CHLORIDE 0.9% 1,000 ML IV SCH (07:47)
[2016-06-01] MEDS ORDERED: TRIAMTERENE-HCTZ 75-50MG 1 EACH TAB PO PRN (07:50)
[2016-06-01] MEDS: SYMBICORT 80-4.5 MCG INHALER INHALATION SCH ×2 (08:01→21:07)
[2016-06-01] MEDS: MECLIZINE 25 MG TAB PO SCH (08:48)
[2016-06-01] MEDS: CHOLECALCIFEROL 1,000 UNIT TAB PO SCH (08:48)
[2016-06-01] MEDS: CLOPIDOGREL 75 MG TAB PO SCH (08:48)
[2016-06-01] MEDS ORDERED: NON-FORMULARY DRUG (Omega-3 Fatty Acids [Omega-3] 1,000 MG) PO SCH (09:00)
[2016-06-01] MEDS ORDERED: TRIAMTERENE-HCTZ 75-50MG 1 EACH TAB PO SCH (09:00)
[2016-06-01] MEDS ORDERED: SPIRONOLACTONE 25 MG TAB PO SCH (09:00)
[2016-06-01] MEDS ORDERED: ASPIRIN 325 MG TAB PO SCH (09:00)
[2016-06-01] MEDS: LISINOPRIL 2.5 MG TAB PO SCH (11:43)
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
[2016-06-01 12:58] LABS: Anion Gap 10 mmol/L; Blood Urea Nitrogen 10 mg/dL (7-17); Calcium 8.9 mg/dL (8.4-10.2); Carbon Dioxide 22 mmol/L (22-30); Chloride 99 mmol/L (98-107); Glucose 108 mg/dL (74-99); Non-African American GFR(MDRD) >60 (>60 ml/min/1.73 sqM); Potassium 3.9 mmol/L (3.5-5.1); Sodium 131 mmol/L (137-145)
--- NOTE | 2016-06-01 13:01 | CONS ---
DATE OF CONSULTATION: CHIEF COMPLAINT: Chest pain. Mae is a 60-year-old lady with history of coronary artery disease, status post angioplasty of LAD, hypertension, COPD, and dyslipidemia who presented to the hospital complaining of chest discomfort that is sharp, atypical first in the neck and also felt in the arms. This symptom is different compared to the chest pain that she had back in March when she had non-ST segment elevation MA and underwent cardiac catheterization and angioplasty. At the time of my evaluation this morning, she is pain free, hemodynamically stable and in no distress. Has had 3 sets of cardiac enzymes that are all negative. Her LDL cholesterol is normal. The patient also has hyponatremia with a sodium of 124. EKG shows sinus rhythm with nonspecific T wave changes in the precordial leads. She has more pronounced EKG changes at last visit. Given her unexplained chest pain and recent angioplasty, I advised her to undergo a dobutamine echo. This will be done tomorrow morning and if this is abnormal, I will perform cardiac catheterization on her. Past medical history is significant for coronary artery disease, status post angioplasty, hypertension, dyslipidemia. Medications include Aldactone, Toprol XL, Antivert, Zestril, Plavix, Soma, Lipitor, aspirin. Allergic to IODINE, LATEX, PREDNISONE, SHELLFISH, SULFA. Family history is negative for premature coronary artery disease. Social history is negative for smoking, EtOH abuse, or drug abuse. REVIEW OF SYSTEMS: HEENT: Unremarkable. CARDIAC: As described above. RESPIRATORY: Negative. GI: Negative. GENITOURINARY: Negative. ALLERGY/IMMUNOLOGY: Negative. MUSCULOSKELETAL: Significant for arthritis. PSYCHOSOCIAL: Negative. ENDOCRINE: Negative. HEMATOLOGICAL: Negative. DERMATOLOGY: Negative. CONSTITUTIONAL: Negative. ONCOLOGICAL: Negative. The rest of the system review is not relevant. On exam, patient is comfortable at rest. Vital signs are stable. There is no jugular venous distention. Carotid upstroke is normal. There is no bruit. Chest exam reveals good air entry bilaterally. Heart exam reveals first and second heart sounds. No gallop. No murmur, no rub. Abdomen is soft, nontender. Exam of the extremities did not reveal any edema. Peripheral pulses are felt. FLEET MANAGER/DISPATCH exam did not reveal focal neurological deficits. Labs show that tropes are negative. EKG is as described above. ASSESSMENT: 1. Chest pain in a patient with known coronary artery disease, status post recent angioplasty. 2. Hyponatremia. 3. Hypertension. 4. Dyslipidemia. PLAN: Patient's chest discomfort is atypical, probably musculoskeletal. I will schedule her for a stress echo tomorrow morning. If this is abnormal, she will need cardiac catheterization. If this is normal, she can be discharged home.
[2016-06-01] MEDS: Acetaminophen-Codeine 300-30mg TAB PO PRN ×2 (16:08→21:03)
[2016-06-02 06:37] LABS: Basophils % (A) 1 %; CH 31.1; CHCM 34.4; Eosinophils # (A) 0.2 k/uL (0-0.7); Eosinophils % (A) 6 %; HCT 36.8 % (34.0-46.0); HDW 2.34; HGB 12.5 gm/dL (11.4-16.0); Luc # (Auto) 0.14; Luc % (Auto) 4; Lymphocytes # (A) 1.3 k/uL (1.0-4.8); Lymphocytes % (A) 34 %; MCH 30.9 pg (25.0-35.0); MCHC 33.9 g/dL (31.0-37.0); Mean Platelet Volume 6.4; Monocytes # (A) 0.4 k/uL (0-1.0); Monocytes % (A) 11 %; Neutrophils # (A) 1.8 k/uL (1.3-7.7); Neutrophils % (A) 45 %; RBC 4.05 m/uL (3.80-5.40); RDW 12.4 % (11.5-15.5); WBC (Perox) 4.08
[2016-06-02 06:50] LABS: ALT 46 U/L (9-52); AST 31 U/L (14-36); Alkaline Phosphatase 50 U/L (38-126); Anion Gap 7 mmol/L; Blood Urea Nitrogen 11 mg/dL (7-17); Carbon Dioxide 26 mmol/L (22-30); Chloride 100 mmol/L (98-107); Glucose 87 mg/dL (74-99); Non-African American GFR(MDRD) >60 (>60 ml/min/1.73 sqM); Potassium 4.5 mmol/L (3.5-5.1); Sodium 133 mmol/L (137-145); Total Bilirubin 0.6 mg/dL (0.2-1.3); Total Protein 5.4 g/dL (6.3-8.2)
[2016-06-02] MEDS: SYMBICORT 80-4.5 MCG INHALER INHALATION SCH ×2 (08:34→20:48)
--- NOTE | 2016-06-02 09:29 | P.PN ---
Subjective Principal diagnosis: Chest pain This is a pleasant 60-year-old female who follows regularly with Dr. Hooker in the office. She has a known history of coronary artery disease with prior LAD stent, hypertension, hyperlipidemia, mild COPD. She presented to the hospital with symptoms of chest discomfort. She was seen in consultation by Dr. Aden and recommended to undergo stress testing today. Her troponins have been negative 3. EKG shows normal sinus rhythm with nonspecific ST-T wave changes, similar to prior EKGs. At the time of my examination this morning, patient denies any further chest discomfort. She has been up ambulating in the hallway most of the morning without any symptoms. Objective - Vital Signs Vital signs: Vital Signs Temp 97.3 F L 06/02/16 08:03 Pulse 68 06/02/16 08:03 Resp 16 06/02/16 08:03 BP 117/58 06/02/16 08:03 Pulse Ox 100 06/02/16 08:03 Intake & Output 06/01/16 06/02/16 06/02/16 18:59 06:59 18:59 Intake Total 642 0 Balance 642 0 Weight 65 kg Intake: IV 300 Sodium Chloride 0.9% 1, 300 000 ml @ 100 mls/hr IV . Q10H CARIN Rx#:[id number] Oral 342 0 Other: Voiding Method Toilet Toilet Toilet # Voids 1 - Exam PHYSICAL EXAMINATION: HEENT: [Head is atraumatic, normocephalic. Pupils equal, round. Neck is supple. There is no elevated jugular venous pressure.] HEART EXAMINATION: [Heart S1, S2 normal. No murmur or gallop heard.] CHEST EXAMINATION:[ Lungs are clear to auscultation and precussion. No chest wall tenderness is noted on palpation or with deep breathing.] ABDOMEN: [ Soft, nontender. Bowel sounds are heard. No organomegaly noted]. EXTREMITIES:[ 2+ peripheral pulses with no evidence of peripheral edema and no calf tenderness noted]. NEUROLOGIC [patient is awake, alert and oriented -3.] . - Labs CBC & Chem 7: 06/02/16 05:59 06/02/16 05:59 Labs: Abnormal Lab Results - Last 24 Hours (Table) 06/01/16 06/01/16 06/02/16 Range/Units 05:56 17:19 05:59 Sodium 131 L 133 L (137-145) mmol/L Glucose 108 H (74-99) mg/dL Osmolality 273 L (280-301) mosm/kg Total Protein 5.4 L (6.3-8.2) g/dL Albumin 3.3 L (3.5-5.0) g/dL Ur Random Sodium 28 L (30-90) mmol/L Assessment and Plan (1) Presence of stent in LAD coronary artery Status: Acute (2) HTN (hypertension) Status: Acute (3) Hyperlipemia Status: Acute (4) Chest pain Status: Acute (5) Hyponatremia Status: Acute Plan: From cardiology's perspective, patient is scheduled to undergo a stress test today. If the stress test is negative she may be able to be discharged home. If the stress test is positive, cardiac catheterization will then be performed. Further recommendations will be based on these findings and patient's clinical course. DNP note has been reviewed, I agree with a documented findings and plan of care. Patient was seen and examined.
[2016-06-02] MEDS: ASPIRIN 81 MG CHEW PO SCH (10:02)
[2016-06-02] MEDS: CHOLECALCIFEROL 1,000 UNIT TAB PO SCH (10:03)
[2016-06-02] MEDS: CLOPIDOGREL 75 MG TAB PO SCH (10:07)
[2016-06-02] MEDS: MECLIZINE 25 MG TAB PO SCH (10:08)
[2016-06-02] MEDS: SPIRONOLACTONE 25 MG TAB PO SCH (10:12)
[2016-06-02] MEDS ORDERED: ASPIRIN 325 MG TAB PO STA (11:16)
[2016-06-02] MEDS ORDERED: ALPRAZolam 0.5 MG TAB PO PRN (11:16)
[2016-06-02] MEDS ORDERED: NITROGLYCERIN SL TABS 0.4 MG TAB SUBLINGUAL PRN (11:16)
[2016-06-02] MEDS ORDERED: ATORVASTATIN 80 MG TAB PO STA (11:16)
[2016-06-02] MEDS ORDERED: SODIUM CHLORIDE 0.9% 1,000 ML in EMPTY BAG 1 BAG IV ONE (11:16)
[2016-06-02] MEDS ORDERED: ALPRAZolam 0.25 MG TAB PO PRN (11:16)
[2016-06-02] MEDS: LISINOPRIL 2.5 MG TAB PO SCH (11:27)
[2016-06-02] MEDS: ATORVASTATIN 80 MG TAB PO SCH (11:40)
--- NOTE | 2016-06-02 11:43 | ECHOS ---
DATE OF SERVICE: 06/02/2016 AGE: 60Y SEX: F HT: 62 WT: 143 lbs. Protocol Blade: X Others: Stress Echo Stage: III Dur. of Exercise: 7 minutes *Heart Rate Blood Pressure *Rest: 69 Rest: 128/62 * *Max. Achieved: 139 Maximum BP: 185/76 85% PMHR: 134 100% PMHR: 158 *METS: 8.1 INDICATIONS: Chest pain. MEDICATIONS: Baseline rhythm is sinus mechanism, rate of 69, normal axis and intervals. Evidence of anterior myocardial infarction, Baseline blood pressure 128/62 mmHg. Patient exercised on Blade protocol for 7 minutes reaching peak rate of 139 beats per minute, which is equal to 88% maximum predicted heart rate; peak blood pressure 185/76 mmHg. Test was terminated secondary to fatigue. There was no chest pain. Electrocardiograph monitoring revealed no evidence of diagnostic ischemic ST deviation. Baseline echocardiogram revealed mild anteroapical and anteroseptal hypokinesis that worsened at peak exercise and had improvement in recovery. CONCLUSION: 1. Average exercise tolerance with normal electrocardiograph response to exercise. 2. Abnormal stress echocardiogram with evidence of stress-induced ischemia involving the anteroapical and anteroseptal wall consistent with stress-induced ischemia in the LAD territory.
[2016-06-02] MEDS ORDERED: IV FLUID CONTINUATION 1,000 ML IV ONE (12:49)
[2016-06-02] MEDS ORDERED: LIDOCAINE 2% INJ 20 MG/ML (20 ML MDV) ONE (12:55)
[2016-06-02] MEDS ORDERED: methylPREDNISolone SOD SUCCI 125 MG/2 ML VIAL ONE (13:00)
[2016-06-02] MEDS ORDERED: MIDAZOLAM 2 MG/2 ML VIAL ONE (13:00)
[2016-06-02] MEDS ORDERED: diphenhydrAMINE 50 MG/ML 1 ML VIAL ONE (13:00)
[2016-06-02] MEDS ORDERED: MIDAZOLAM 2 MG/2 ML VIAL IV ONE (13:03)
[2016-06-02] MEDS ORDERED: methylPREDNISolone SOD SUCCI 125 MG/2 ML VIAL IV ONE (13:04)
[2016-06-02] MEDS ORDERED: diphenhydrAMINE 50 MG/ML 1 ML VIAL IVP ONE (13:04)
[2016-06-02] MEDS ORDERED: IOHEXOL 350 MG/ML 100 ML BOTTLE INJ ONE (13:21)
[2016-06-02] MEDS ORDERED: RX INFO: IV CONTRAST WAS GIVEN 1 EACH MISC MISCELLANE PRN (13:22)
[2016-06-02] MEDS: Acetaminophen-Codeine 300-30mg TAB PO PRN ×3 (14:01→23:00)
[2016-06-02] MEDS: SODIUM CHLORIDE 0.9% 1,000 ML IV SCH (14:01)
--- NOTE | 2016-06-02 14:34 | CC ---
DATE OF SERVICE: INDICATION: Chest pain with abnormal stress echocardiogram showing ischemia in LAD distribution. PROCEDURE NOTE: After obtaining informed consent, left heart catheterization and coronary angiogram were performed via the right femoral artery using standard Ninfa catheters. Patient tolerated the procedure well without any obvious immediate complications. FINDINGS: 1. Hemodynamics: Left ventricular end-diastolic pressure is 14 to 16 mm. There is no significant gradient across the aortic valve. 2. Left Ventriculogram: Left ventriculogram was not performed. 3. Angiographic Data: Left main coronary artery: The patient has a normal left main coronary artery. LAD was previously stented in the midportion and the stent appears patent. Circumflex coronary artery is an anomalous vessel and coming from the right coronary sinus and is free of significant stenosis. Right coronary artery is a nondominant vessel and is free of stenosis. CONCLUSIONS: 1. Patent stent within the left anterior descending artery. 2. Anomalous circumflex coronary artery. PLAN: I reviewed angiographic data with the patient and advised her continued medical therapy.
--- NOTE | 2016-06-02 15:07 | P.PN ---
Subjective 60-year-old female with diagnosis of CAD who underwent a PCI/PTCA to the LAD with the last month comes in to the hospital with complaints of generalized weakness. Patient states that her initial complaints were left shoulder ache with some numbness into the fingers on the left side however there was short lasting. Patient states that she was not feeling her usual self hence came into the emergency room after recommendations by her chiropractor. In the emergency room patient's EKG did not reveal ST-T wave changes. Patient was noted to have a sodium of 124. Patient states that she has been drinking close to 60 ounces of water. Patient is also on Maxide for her Mnire's disease. Patient denies having any headaches, blurry vision, recent seizure-like activity , nausea, vomiting, diarrhea, urinary urgency or frequency at this time. In the time of my evaluation patient denies having any chest pain. 06/02/2016 Patient denies having any chest pain, difficulty breathing, nausea, vomiting, diarrhea. No new overnight events reported. Patient did have a stress test this morning which was positive. Patient is to undergo cardiac catheterization later today. Objective - Vital Signs Vital signs: Vital Signs Temp 97.1 F L 06/02/16 11:37 Pulse 64 06/02/16 14:07 Resp 18 06/02/16 14:07 BP 152/69 06/02/16 14:07 Pulse Ox 95 06/02/16 13:52 Intake & Output 06/01/16 06/02/16 06/02/16 18:59 06:59 18:59 Intake Total 642 165 Balance 642 165 Weight 65 kg Intake: IV 300 100 Sodium Chloride 0.9% 1, 300 000 ml @ 100 mls/hr IV . Q10H [facility] Rx#:[id number] Intake, IV Titration 65 Amount Sodium Chloride 0.9% 1, 65 000 ml In Empty Bag 1 bag @ 1 ML/KG/HR 65 mls/hr IV .[id number] ONE Rx#: [id number] Oral 342 0 Other: Voiding Method Toilet Toilet Toilet # Voids 1 1 - Exam Physical exam Gen. appearance oriented 3 in no distress Neck is supple no JVD Lungs good air entry clear to auscultation no rhonchi or wheezing Heart S1-S2 heard regular rate and rhythm no murmurs appreciated Abdomen is soft nontender no organomegaly bowel sounds are intact Neurologically cranial nerves II-12 grossly intact no focal motor or sensory deficits noted Skin no abnormalities appreciated - Labs CBC & Chem 7: 06/02/16 05:59 06/02/16 05:59 Labs: Abnormal Lab Results - Last 24 Hours (Table) 06/01/16 06/02/16 Range/Units 17:19 05:59 Sodium 133 L (137-145) mmol/L Osmolality 273 L (280-301) mosm/kg Total Protein 5.4 L (6.3-8.2) g/dL Albumin 3.3 L (3.5-5.0) g/dL Ur Random Sodium 28 L (30-90) mmol/L Assessment and Plan Plan: #1 acute euvolemic hyponatremia likely secondary to a combination of hydrochlorothiazide and free water intake #2 CAD status post PCI recently. #3 atypical chest pain #4 history of hypertension. #5 dyslipidemia #6 history of Mnire's disease. Plan serum sodium is significantly improved. We'll await cardiac catheterization results. We'll likely discharge the patient in the next 24 hours.
[2016-06-02] MEDS: LORATADINE 10 MG TAB PO SCH (16:19)
[2016-06-02] MEDS: METOPROLOL SUCCINATE (ER) 50 MG TAB.ER.24H PO SCH (20:19)
[2016-06-03] MEDS: SODIUM CHLORIDE 0.9% 1,000 ML IV SCH (05:29)
[2016-06-03 06:41] LABS: ALT 100 U/L (9-52); AST 94 U/L (14-36); Alkaline Phosphatase 63 U/L (38-126); Anion Gap 10 mmol/L; Blood Urea Nitrogen 11 mg/dL (7-17); Calcium 9.5 mg/dL (8.4-10.2); Carbon Dioxide 23 mmol/L (22-30); Chloride 97 mmol/L (98-107); Glucose 139 mg/dL (74-99); Non-African American GFR(MDRD) >60 (>60 ml/min/1.73 sqM); Potassium 4.1 mmol/L (3.5-5.1); Sodium 130 mmol/L (137-145); Total Bilirubin 0.7 mg/dL (0.2-1.3); Total Protein 6.1 g/dL (6.3-8.2)
[2016-06-03] MEDS: ASPIRIN 81 MG CHEW PO SCH (08:24)
[2016-06-03] MEDS: LORATADINE 10 MG TAB PO SCH (08:25)
[2016-06-03] MEDS: CHOLECALCIFEROL 1,000 UNIT TAB PO SCH (08:25)
[2016-06-03] MEDS: CLOPIDOGREL 75 MG TAB PO SCH (08:25)
[2016-06-03] MEDS: SPIRONOLACTONE 25 MG TAB PO SCH (08:26)
[2016-06-03] MEDS: LISINOPRIL 2.5 MG TAB PO SCH (08:26)
[2016-06-03] MEDS: MECLIZINE 25 MG TAB PO SCH (08:26)
--- NOTE | 2016-06-03 08:40 | P.PN ---
Subjective Principal diagnosis: Chest pain This is a pleasant 60-year-old female who follows regularly with Dr. Hooker in the office. She has a known history of coronary artery disease with prior LAD stent, hypertension, hyperlipidemia, mild COPD. She presented to the hospital with symptoms of chest discomfort. The patient underwent a stress echocardiographic study which suggested reversible ischemia in the anterior region, therefore she underwent a cardiac catheterization yesterday by Dr. Aden Which revealed a patent stent within the LAD, anomalous circumflex artery, medical therapy advised. Patient was seen and examined this morning, denies any chest pain or difficulty in breathing. She has been up ambulating in the [place] most of the morning. Blood pressure 100/50 with a heart rate in the 60s. Objective - Vital Signs Vital signs: Vital Signs Temp 97.8 F 06/03/16 04:00 Pulse 61 06/03/16 04:00 Resp 18 06/03/16 04:00 BP 99/53 06/03/16 04:00 Pulse Ox 97 06/03/16 04:00 Intake & Output 06/02/16 06/03/16 06/03/16 18:59 06:59 18:59 Intake Total 165 900 Output Total 300 Balance 165 600 Weight 65.3 kg Intake: IV 100 Intake, IV Titration 65 300 Amount Sodium Chloride 0.9% 1, 300 000 ml @ 75 mls/hr IV . [id number] [facility] Rx#:[id number] Sodium Chloride 0.9% 1, 65 000 ml In Empty Bag 1 bag @ 1 ML/KG/HR 65 mls/hr IV .[id number] ONE Rx#: [id number] Oral 0 600 Output: Urine 300 Other: Voiding Method Toilet Toilet # Voids 1 1 - Exam PHYSICAL EXAMINATION: HEENT: Head is atraumatic, normocephalic. Pupils equal, round. Neck is supple. There is no elevated jugular venous pressure. HEART EXAMINATION: Heart S1, S2 normal. No murmur or gallop heard. CHEST EXAMINATION: Lungs are clear to auscultation and precussion. No chest wall tenderness is noted on palpation or with deep breathing. ABDOMEN: Soft, nontender. Bowel sounds are heard. No organomegaly noted. Right groin soft, no evidence of any hematoma. EXTREMITIES: 2+ peripheral pulses with no evidence of peripheral edema and no calf tenderness noted. NEUROLOGIC patient is awake, alert and oriented -3. . - Labs CBC & Chem 7: 06/02/16 05:59 06/03/16 05:35 Labs: Abnormal Lab Results - Last 24 Hours (Table) 06/03/16 Range/Units 05:35 Sodium 130 L (137-145) mmol/L Chloride 97 L (98-107) mmol/L Creatinine 0.50 L (0.52-1.04) mg/dL Glucose 139 H (74-99) mg/dL AST 94 H (14-36) U/L ALT 100 H (9-52) U/L Total Protein 6.1 L (6.3-8.2) g/dL Assessment and Plan (1) Presence of stent in LAD coronary artery Status: Acute (2) HTN (hypertension) Status: Acute (3) Hyperlipemia Status: Acute (4) Chest pain Status: Acute (5) Hyponatremia Status: Acute (6) S/P cardiac catheterization Status: Acute Plan: From cardiology's perspective, patient may be able to be discharged home today. We will make her a follow-up appointment in the office with in one week. DNP note has been reviewed, I agree with a documented findings and plan of care. Patient was seen and examined.
[2016-06-03 08:43] VITALS: TEMP 97.6
[2016-06-03] MEDS: SYMBICORT 80-4.5 MCG INHALER INHALATION SCH (08:44)
[2016-06-03] MEDS: Acetaminophen-Codeine 300-30mg TAB PO PRN (08:51)
[2016-06-03 11:34] VITALS: BP 96/55; PULSE 64; RESP 17
[2016-06-03 12:07] VITALS: BMI 26.3
--- NOTE | 2016-06-03 19:39 | P.DS ---
Providers Date of admission: 05/31/16 19:41 Attending physician: Jessica Wilcox Consults: 05/31/16 19:43 Consult Physician Urgent Consulting Provider: William Lopez Reason/Comments: History of NSTEMI, Hypertension Do you want consulting provider notified?: Yes, Notify in am Primary care physician: Renny [facility] Course: 60-year-old female with diagnosis of CAD who underwent a PCI/PTCA to the LAD with the last month comes in to the hospital with complaints of generalized weakness. Patient states that her initial complaints were left shoulder ache with some numbness into the fingers on the left side however there was short lasting. Patient states that she was not feeling her usual self hence came into the emergency room after recommendations by her chiropractor. In the emergency room patient's EKG did not reveal ST-T wave changes. Patient was noted to have a sodium of 124. Patient states that she has been drinking close to 60 ounces of water. Patient is also on Maxide for her Mnire's disease. Patient denies having any headaches, blurry vision, recent seizure-like activity , nausea, vomiting, diarrhea, urinary urgency or frequency at this time. In the time of my evaluation patient denies having any chest pain. 06/02/2016 Patient denies having any chest pain, difficulty breathing, nausea, vomiting, diarrhea. No new overnight events reported. Patient did have a stress test this morning which was positive. Patient is to undergo cardiac catheterization later today. 06/03/16 No complaints reported. - Exam Physical exam Gen. appearance oriented 3 in no distress Neck is supple no JVD Lungs good air entry clear to auscultation no rhonchi or wheezing Heart S1-S2 heard regular rate and rhythm no murmurs appreciated Abdomen is soft nontender no organomegaly bowel sounds are intact Neurologically cranial nerves II-12 grossly intact no focal motor or sensory deficits noted Skin no abnormalities appreciated Assessment and Plan Plan: #1 acute euvolemic hyponatremia likely secondary to a combination of hydrochlorothiazide and free water intake #2 CAD status post PCI recently. #3 atypical chest pain #4 history of hypertension. #5 dyslipidemia #6 history of Mnire's disease. Pt was noted to have abnormal stress test, underwent a cardiac cath, didnot reveal any changes significant from the previous cath. Recommended fluid restriction and discharged home Maxide is discontinued.. Patient Condition at Discharge: Stable Plan - Discharge Summary New Discharge Prescriptions: Furosemide [Lasix] 20 mg PO DAILY #30 tablet Discharge Medication List Acetaminophen-Codeine 300-30mg [Tylenol w/codeine #3] 0.25 - 1 tab PO Q8H PRN [History] Carisoprodol [Soma] 87.5 - 350 mg PO BID PRN 03/29/16 [History] Cholecalciferol [Vitamin D3] 5,000 unit PO DAILY 03/29/16 [History] Fluticasone/Salmeterol [Advair 250-50 Diskus] 1 puff INHALATION RT-BID 03/29/16 [History] Kelp 3 tab PO DAILY 03/29/16 [History] Meclizine [Antivert] 25 mg PO DAILY 03/29/16 [History] [place]-3 Fatty Acids [[place]-3] 1,000 mg PO DAILY 03/29/16 [History] Aspirin 81 mg PO DAILY #30 chew 04/03/16 [Rx] Clopidogrel [Plavix] 75 mg PO DAILY #30 tab 04/03/16 [Rx] Nitroglycerin Sl Tabs [Nitrostat] 0.4 mg SUBLINGUAL Q5M PRN #25 tab 04/03/16 [Rx ] Spironolactone [Aldactone] 12.5 mg PO DAILY #30 tab 04/03/16 [Rx] Aspirin 650 mg PO ONCE PRN 05/31/16 [History] Atorvastatin [Lipitor] 80 mg PO HS 05/31/16 [History] Lisinopril [Zestril] 2.5 mg PO DAILY@1200 05/31/16 [History] Metoprolol Succinate (ER) [Toprol XL] 50 mg PO HS 05/31/16 [History] Furosemide [Lasix] 20 mg PO DAILY #30 tablet 06/02/16 [Rx] Follow up Appointment(s)/Referral(s): Cortes Ng MD [STAFF PHYSICIAN] - 1 Week (PLEASE CALL DR NG FOR APPOINTMENT IN ONE WEEK IF POSSIBLE) Renny Pulliam III, MD [Primary Care Provider] - 1-2 days (DR PULLIAM OFFICE CLOSED TODAY PLEASE CALL OFFICE GALI FOR FOLLOW UP APPOINTMENT) Patient Instructions/Handouts: After Heart Catheterization - Jive Developer Discharge Disposition: HOME SELF-CARE
== END 2016-06-03 16:32 | disposition home or self-care (01) | DRG 287 ==
LOC: EC 17:05 → 6SEL 19:41
PROVIDERS: ADMIT Internal Medicine; ATTEND Internal Medicine
PROC: B2111ZZ Fluoroscopy of Multiple Coronary Arteries using Low Osmolar Contrast (ICD-10-PCS; 2016-06-02)
PROC: 4A023N7 Measurement of Cardiac Sampling and Pressure, Left Heart, Percutaneous Approach (ICD-10-PCS; principal; 2016-06-02 12:49)
DX: R07.89 Other chest pain (principal); E87.1 Hypo-osmolality and hyponatremia; I10 Essential (primary) hypertension; I25.2 Old myocardial infarction; I25.10 Atherosclerotic heart disease of native coronary artery without angina pectoris; T50.2X5A Adverse effect of carbonic-anhydrase inhibitors, benzothiadiazides and other diuretics, initial encounter; E78.5 Hyperlipidemia, unspecified; F43.10 Post-traumatic stress disorder, unspecified; J44.9 Chronic obstructive pulmonary disease, unspecified; J45.909 Unspecified asthma, uncomplicated; M85.80 Other specified disorders of bone density and structure, unspecified site; E07.9 Disorder of thyroid, unspecified; E55.9 Vitamin D deficiency, unspecified; Z79.02 Long term (current) use of antithrombotics/antiplatelets; Z79.82 Long term (current) use of aspirin; Z79.899 Other long term (current) drug therapy; Z91.041 Radiographic dye allergy status; Z88.2 Allergy status to sulfonamides; Z88.8 Allergy status to other drugs, medicaments and biological substances; Z91.040 Latex allergy status; Z91.013 Allergy to seafood; Z95.5 Presence of coronary angioplasty implant and graft; Z82.49 Family history of ischemic heart disease and other diseases of the circulatory system; Y92.9 Unspecified place or not applicable
CPT/HCPCS: 36415; 71020; 80048; 80053; 80061; 81001; 82306; 82550; 82553; 83735; 83880; 83930; 83935; 84300; 84443; 84484; 84560; 85025; 85610; 85730; 93005; 93017; 93350; 93458; 94640; 96361; 96374; 99285

== ENCOUNTER 2016-06-11 18:50 | Emergency (ER) | payer MEDICARE, SELFPAY ==
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
[2016-06-11 19:24] LABS: Basophils % (A) 1 %; CH 31.4; CHCM 34.5; Eosinophils # (A) 0.2 k/uL (0-0.7); Eosinophils % (A) 3 %; HCT 40.7 % (34.0-46.0); HDW 2.32; HGB 13.9 gm/dL (11.4-16.0); Luc # (Auto) 0.16; Luc % (Auto) 2; Lymphocytes # (A) 1.6 k/uL (1.0-4.8); Lymphocytes % (A) 25 %; MCH 31.1 pg (25.0-35.0); MCHC 34.1 g/dL (31.0-37.0); MCV 91.3 fL (80.0-100.0); Mean Platelet Volume 6.4; Monocytes # (A) 0.5 k/uL (0-1.0); Monocytes % (A) 8 %; Neutrophils # (A) 4.1 k/uL (1.3-7.7); Neutrophils % (A) 62 %; RBC 4.46 m/uL (3.80-5.40); RDW 12.3 % (11.5-15.5); WBC 6.6 k/uL (3.8-10.6); WBC (Perox) 6.44
--- NOTE | 2016-06-11 19:44 | XR ---
EXAMINATION TYPE: XR chest 2V DATE OF EXAM: 06/11/2016 7:35 PM COMPARISON: NONE INDICATION: Chest pain TECHNIQUE: Single frontal view of the chest is obtained. FINDINGS: The heart size is normal. The pulmonary vasculature is normal. Some minimal plate atelectasis at the left base. Lungs are otherwise clear. IMPRESSION: 1. Minimal plate atelectasis left base
[2016-06-11 19:46] LABS: INR 1.1 (<1.1); Partial Thromboplastin Time 23.7 sec (22.0-30.0); Prothrombin Time 10.6 sec (9.0-12.0)
[2016-06-11 20:03] LABS: Creatine Kinase 139 U/L (30-135)
[2016-06-11 20:05] LABS: ALT 45 U/L (9-52); AST 36 U/L (14-36); Alkaline Phosphatase 67 U/L (38-126); Anion Gap 14 mmol/L; Blood Urea Nitrogen 15 mg/dL (7-17); Calcium 9.7 mg/dL (8.4-10.2); Carbon Dioxide 23 mmol/L (22-30); Chloride 96 mmol/L (98-107); Glucose 94 mg/dL (74-99); Magnesium 1.9 mg/dL (1.6-2.3); Non-African American GFR(MDRD) >60 (>60 ml/min/1.73 sqM); Sodium 133 mmol/L (137-145); Total Bilirubin 0.6 mg/dL (0.2-1.3); Total Protein 6.8 g/dL (6.3-8.2)
[2016-06-11 20:10] LABS: Potassium 4.3 mmol/L (3.5-5.1)
[2016-06-11 20:15] LABS: Creatine Kinase MB 2.2 ng/mL (0.0-2.4); Troponin I <0.012 ng/mL (0.000-0.034)
[2016-06-11 21:10] VITALS: BP 136/68; PULSE 70; RESP 20; TEMP 98.5
== END 2016-06-11 21:06 | disposition home or self-care (01) ==
LOC: EC 18:50
DX: R07.89 Other chest pain (principal); J45.909 Unspecified asthma, uncomplicated; E07.9 Disorder of thyroid, unspecified; K29.60 Other gastritis without bleeding; Z79.51 Long term (current) use of inhaled steroids; Z79.899 Other long term (current) drug therapy; Z91.040 Latex allergy status; Z91.013 Allergy to seafood; Z88.2 Allergy status to sulfonamides; Z91.012 Allergy to eggs; Z88.8 Allergy status to other drugs, medicaments and biological substances
CPT/HCPCS: 36415; 71020; 80053; 82550; 82553; 83735; 84484; 85025; 85379; 85610; 85730; 93005; 99285

== ENCOUNTER 2016-06-28 23:09 | Emergency (ER) | payer MEDICARE, SELFPAY ==
[2016-06-28] MEDS ORDERED: NITROGLYCERIN OINT 1 INCH/GM PACKET TOPICAL STA (23:18)
[2016-06-28] MEDS ORDERED: ASPIRIN 81 MG CHEW PO STA (23:18)
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
[2016-06-28 23:27] VITALS: RESP 16; TEMP 97.9
[2016-06-28 23:56] LABS: Basophils % (A) 0 %; CH 31.7; CHCM 35.9; Eosinophils # (A) 0.2 k/uL (0-0.7); Eosinophils % (A) 3 %; HCT 37.5 % (34.0-46.0); HDW 2.42; HGB 13.3 gm/dL (11.4-16.0); Luc # (Auto) 0.17; Luc % (Auto) 3; Lymphocytes # (A) 1.9 k/uL (1.0-4.8); Lymphocytes % (A) 31 %; MCH 31.4 pg (25.0-35.0); MCHC 35.5 g/dL (31.0-37.0); MCV 88.5 fL (80.0-100.0); Mean Platelet Volume 6.2; Monocytes # (A) 0.5 k/uL (0-1.0); Monocytes % (A) 8 %; Neutrophils # (A) 3.4 k/uL (1.3-7.7); Neutrophils % (A) 55 %; RBC 4.24 m/uL (3.80-5.40); RDW 12.6 % (11.5-15.5); WBC 6.2 k/uL (3.8-10.6); WBC (Perox) 6.14
[2016-06-29 00:05] LABS: ALT 51 U/L (9-52); AST 42 U/L (14-36); Alkaline Phosphatase 70 U/L (38-126); Anion Gap 7 mmol/L; Blood Urea Nitrogen 17 mg/dL (7-17); Calcium 9.4 mg/dL (8.4-10.2); Carbon Dioxide 23 mmol/L (22-30); Chloride 97 mmol/L (98-107); Glucose 92 mg/dL (74-99); Non-African American GFR(MDRD) >60 (>60 ml/min/1.73 sqM); Potassium 4.3 mmol/L (3.5-5.1); Sodium 127 mmol/L (137-145); Total Bilirubin 0.9 mg/dL (0.2-1.3); Total Protein 6.4 g/dL (6.3-8.2)
[2016-06-29 00:19] LABS: Creatine Kinase 192 U/L (30-135); Partial Thromboplastin Time 25.1 sec (22.0-30.0); Prothrombin Time 10.5 sec (9.0-12.0)
[2016-06-29 00:31] LABS: Troponin I <0.012 ng/mL (0.000-0.034)
[2016-06-29 00:36] LABS: Creatine Kinase MB 2.9 ng/mL (0.0-2.4)
--- NOTE | 2016-06-29 00:55 | XR ---
Chest PA and lateral views INDICATION: Chest pain COMPARISON: CXR 06/11/16. FINDINGS: PA and lateral views of the chest are obtained. The cardiomediastinal silhouette is within normal limits. Lungs are clear. No pleural effusion or pneumothorax. No acute osseous findings. IMPRESSION: No acute cardiopulmonary disease.
[2016-06-29 01:21] VITALS: BP 123/60; PULSE 64
== END 2016-06-29 01:21 | disposition home or self-care (01) ==
LOC: EC 23:09
DX: R07.89 Other chest pain (principal); R79.89 Other specified abnormal findings of blood chemistry; R20.2 Paresthesia of skin; E07.9 Disorder of thyroid, unspecified; E55.9 Vitamin D deficiency, unspecified; Z79.899 Other long term (current) drug therapy; Z88.2 Allergy status to sulfonamides; Z88.8 Allergy status to other drugs, medicaments and biological substances; Z91.013 Allergy to seafood; Z91.012 Allergy to eggs; Z91.040 Latex allergy status; Z91.09 Other allergy status, other than to drugs and biological substances; Z82.49 Family history of ischemic heart disease and other diseases of the circulatory system
CPT/HCPCS: 36415; 71020; 80053; 82550; 82553; 83735; 84484; 85025; 85610; 85730; 93005; 99284

== ENCOUNTER 2016-07-06 19:04 | Emergency (ER) | payer MEDICARE, SELFPAY ==
[2016-07-06 19:11] VITALS: TEMP 97.9
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
[2016-07-06 20:33] LABS: Appearance,Urine Clear (Clear); Basophils % (A) 1 %; Bilirubin,Urine Negative (Negative); CH 31.4; CHCM 35.1; Eosinophils # (A) 0.1 k/uL (0-0.7); Eosinophils % (A) 2 %; Glucose,Urine (UA) Negative (Negative); HCT 39.3 % (34.0-46.0); HDW 2.24; HGB 13.4 gm/dL (11.4-16.0); Ketones,Urine Negative (Negative); Leukocyte Esterase,Urine Negative (Negative); Luc % (Auto) 3; Lymphocytes # (A) 1.9 k/uL (1.0-4.8); Lymphocytes % (A) 27 %; MCH 30.6 pg (25.0-35.0); MCV 89.9 fL (80.0-100.0); Mean Platelet Volume 6.3; Monocytes # (A) 0.4 k/uL (0-1.0); Monocytes % (A) 7 %; Neutrophils # (A) 4.2 k/uL (1.3-7.7); Neutrophils % (A) 61 %; Nitrite,Urine Negative (Negative); PH, Urine 7.5 (5.0-8.0); Protein,Urine Negative (Negative); RBC 4.38 m/uL (3.80-5.40); RDW 13.1 % (11.5-15.5); Specific Gravity,Urine 1.009 (1.001-1.035); UA Billing (MACRO vs. MICRO) CHEM; Urobilinogen,Urine <2.0 mg/dL (<2.0); WBC 6.8 k/uL (3.8-10.6)
[2016-07-06 20:47] LABS: ALT 53 U/L (9-52); AST 48 U/L (14-36); Alkaline Phosphatase 74 U/L (38-126); Anion Gap 9 mmol/L; Blood Urea Nitrogen 18 mg/dL (7-17); Calcium 9.4 mg/dL (8.4-10.2); Carbon Dioxide 23 mmol/L (22-30); Chloride 98 mmol/L (98-107); Glucose 87 mg/dL (74-99); Non-African American GFR(MDRD) >60 (>60 ml/min/1.73 sqM); Sodium 130 mmol/L (137-145); Total Bilirubin 0.6 mg/dL (0.2-1.3); Total Protein 6.6 g/dL (6.3-8.2)
[2016-07-06 21:12] LABS: Creatine Kinase 233 U/L (30-135)
[2016-07-06 21:25] LABS: Troponin I <0.012 ng/mL (0.000-0.034)
[2016-07-06 21:28] LABS: Creatine Kinase MB 3.6 ng/mL (0.0-2.4)
[2016-07-06 22:21] VITALS: BP 127/59; PULSE 66; RESP 16
== END 2016-07-06 22:39 | disposition home or self-care (01) ==
LOC: EC 19:04
DX: R79.89 Other specified abnormal findings of blood chemistry (principal); E07.9 Disorder of thyroid, unspecified; E55.9 Vitamin D deficiency, unspecified; Z79.899 Other long term (current) drug therapy; Z88.2 Allergy status to sulfonamides; Z88.8 Allergy status to other drugs, medicaments and biological substances; Z91.012 Allergy to eggs; Z91.013 Allergy to seafood; Z91.040 Latex allergy status; Z91.09 Other allergy status, other than to drugs and biological substances
CPT/HCPCS: 36415; 80053; 81003; 82550; 82553; 84484; 85025; 93005; 99284

== ENCOUNTER 2016-07-21 14:18 | Emergency (ER) | payer MEDICARE, SELFPAY, OTHER ==
[2016-07-21 14:37] VITALS: RESP 18
[2016-07-21] MEDS ORDERED: SODIUM CHLORIDE 0.9% 1,000 ML IV STA (15:43)
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
[2016-07-21 16:08] LABS: Basophils % (A) 1 %; CH 31.8; CHCM 35.4; Eosinophils # (A) 0.1 k/uL (0-0.7); Eosinophils % (A) 1 %; HCT 41.2 % (34.0-46.0); HDW 2.33; HGB 14.4 gm/dL (11.4-16.0); Luc # (Auto) 0.17; Luc % (Auto) 2; Lymphocytes # (A) 1.7 k/uL (1.0-4.8); Lymphocytes % (A) 23 %; MCH 31.5 pg (25.0-35.0); MCV 90.1 fL (80.0-100.0); Mean Platelet Volume 6.2; Monocytes # (A) 0.4 k/uL (0-1.0); Monocytes % (A) 6 %; Neutrophils # (A) 4.7 k/uL (1.3-7.7); Neutrophils % (A) 67 %; RBC 4.58 m/uL (3.80-5.40); RDW 12.8 % (11.5-15.5); WBC 7.1 k/uL (3.8-10.6); WBC (Perox) 6.36
[2016-07-21 16:09] LABS: Appearance,Urine Clear (Clear); Bilirubin,Urine Negative (Negative); Glucose,Urine (UA) Negative (Negative); Ketones,Urine Negative (Negative); Leukocyte Esterase,Urine Negative (Negative); Nitrite,Urine Negative (Negative); PH, Urine 5.5 (5.0-8.0); Protein,Urine Negative (Negative); Specific Gravity,Urine 1.005 (1.001-1.035); UA Billing (MACRO vs. MICRO) CHEM; Urobilinogen,Urine <2.0 mg/dL (<2.0)
[2016-07-21 16:16] LABS: Ionized Calcium 5.1 mg/dL (4.5-5.3)
[2016-07-21 16:17] LABS: Partial Thromboplastin Time 24.8 sec (22.0-30.0); Prothrombin Time 10.3 sec (9.0-12.0)
[2016-07-21 16:30] LABS: ALT 49 U/L (9-52); AST 46 U/L (14-36); Alkaline Phosphatase 72 U/L (38-126); Anion Gap 12 mmol/L; Blood Urea Nitrogen 13 mg/dL (7-17); Calcium 9.8 mg/dL (8.4-10.2); Carbon Dioxide 25 mmol/L (22-30); Chloride 93 mmol/L (98-107); Glucose 89 mg/dL (74-99); Magnesium 1.9 mg/dL (1.6-2.3); Non-African American GFR(MDRD) >60 (>60 ml/min/1.73 sqM); Phosphorous 3.3 mg/dL (2.5-4.5); Potassium 4.4 mmol/L (3.5-5.1); Sodium 130 mmol/L (137-145); Total Bilirubin 0.7 mg/dL (0.2-1.3); Total Protein 6.8 g/dL (6.3-8.2)
--- NOTE | 2016-07-21 16:30 | CT ---
EXAMINATION TYPE: CT brain wo con DATE OF EXAM: 07/21/2016 4:23 PM COMPARISON: NONE HISTORY: 60 year-old female with left leg tingling, weakness. TECHNIQUE: Examination was done in axial plane without intravenous contrast. Coronal and sagittal r econstructions performed. CT DLP: 1005 mGycm Automated exposure control for dose reduction was used. FINDINGS: There is no evidence of acute intracranial hemorrhage, acute ischemic changes, mass, mass-effect, or extra-axial fluid collection. There is no effacement of cerebral sulci or basal subarachnoid cister ns. There is no hydrocephalus. There is no midline shift. [place]-white matter distinction is preserv ed. Paranasal sinuses and mastoid air cells are well pneumatized. Orbits and globes are intact. IMPRESSION: No acute intracranial abnormality seen.
--- NOTE | 2016-07-21 16:31 | XR ---
EXAMINATION TYPE: XR chest 2V DATE OF EXAM: 07/21/2016 4:07 PM COMPARISON: 06/29/2016 HISTORY: 60-year-old female with weakness TECHNIQUE: Frontal and lateral views FINDINGS: The cardiomediastinal silhouette, aorta, and pulmonary vasculature are within normal limits. Some str marcellus atelectasis at the left base. Otherwise, lungs and pleural spaces are clear. IMPRESSION: No acute cardiopulmonary process.
[2016-07-21] MEDS ORDERED: SODIUM CHLORIDE 0.9% 250 ML IV STA (17:17)
[2016-07-21 17:27] VITALS: BP 131/66; PULSE 63; TEMP 98.5
== END 2016-07-21 17:46 | disposition home or self-care (01) ==
LOC: EC 14:18
DX: R20.2 Paresthesia of skin (principal); E87.1 Hypo-osmolality and hyponatremia; Z91.048 Other nonmedicinal substance allergy status; Z91.040 Latex allergy status; Z88.2 Allergy status to sulfonamides; Z88.8 Allergy status to other drugs, medicaments and biological substances; Z91.013 Allergy to seafood; Z91.012 Allergy to eggs; Z79.899 Other long term (current) drug therapy
CPT/HCPCS: 36415; 70450; 71020; 80053; 81003; 82330; 83735; 84100; 84439; 84443; 84481; 85025; 85610; 85730; 93005; 99285

== ENCOUNTER 2016-07-28 11:37 | Emergency (ER) | payer MEDICARE, SELFPAY ==
[2016-07-28] MEDS ORDERED: SODIUM CHLORIDE 0.9% 250 ML IV STA (15:15)
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
[2016-07-28 15:33] LABS: Basophils % (A) 0 %; CH 31.9; CHCM 34.7; Eosinophils # (A) 0.1 k/uL (0-0.7); Eosinophils % (A) 1 %; HCT 41.4 % (34.0-46.0); HDW 2.23; HGB 14.1 gm/dL (11.4-16.0); Luc % (Auto) 2; Lymphocytes # (A) 1.3 k/uL (1.0-4.8); Lymphocytes % (A) 24 %; MCH 31.5 pg (25.0-35.0); MCHC 34.1 g/dL (31.0-37.0); MCV 92.3 fL (80.0-100.0); Mean Platelet Volume 6.2; Monocytes # (A) 0.3 k/uL (0-1.0); Monocytes % (A) 6 %; Neutrophils # (A) 3.6 k/uL (1.3-7.7); Neutrophils % (A) 67 %; RBC 4.48 m/uL (3.80-5.40); RDW 13.1 % (11.5-15.5); WBC 5.4 k/uL (3.8-10.6); WBC (Perox) 5.58
[2016-07-28 15:50] LABS: ALT 48 U/L (9-52); AST 44 U/L (14-36); Alkaline Phosphatase 70 U/L (38-126); Anion Gap 9 mmol/L; Blood Urea Nitrogen 8 mg/dL (7-17); Calcium 9.6 mg/dL (8.4-10.2); Carbon Dioxide 25 mmol/L (22-30); Chloride 97 mmol/L (98-107); Glucose 96 mg/dL (74-99); Non-African American GFR(MDRD) >60 (>60 ml/min/1.73 sqM); Potassium 4.4 mmol/L (3.5-5.1); Sodium 131 mmol/L (137-145); Total Protein 7.1 g/dL (6.3-8.2)
[2016-07-28 16:27] VITALS: BP 120/57; PULSE 72; RESP 16; TEMP 97.9
== END 2016-07-28 16:32 | disposition home or self-care (01) ==
LOC: EC 11:37
DX: E87.1 Hypo-osmolality and hyponatremia (principal); R60.0 Localized edema; R19.7 Diarrhea, unspecified; E55.9 Vitamin D deficiency, unspecified; E07.9 Disorder of thyroid, unspecified; Z79.899 Other long term (current) drug therapy; Z88.2 Allergy status to sulfonamides; Z88.8 Allergy status to other drugs, medicaments and biological substances; Z91.012 Allergy to eggs; Z91.013 Allergy to seafood; Z91.040 Latex allergy status; Z91.09 Other allergy status, other than to drugs and biological substances
CPT/HCPCS: 36415; 80053; 85025; 96365; 99283

== ENCOUNTER → 2016-12-28 | Outpatient (CLI) | payer MEDICARE | END | disposition home or self-care (01) | LOC: RADECHMAIN 11:39 | PROVIDERS: ATTEND Internal Medicine | DX: R00.2 Palpitations (principal) | CPT/HCPCS: 93270; 93271 ==